=== PATIENT | female | born 1995 | race Caucasian/White ===

== ENCOUNTER 2018-01-11 23:45 | Emergency (ER) | payer OTHER ==
[~2018-01-11] VITALS: Ht 160 cm; Wt 54.4 kg
[2018-01-11 23:51] VITALS: BP 111/62
--- NOTE | 2018-01-11 23:55 | NUR ---
PT TAKEN TO BED 10
--- NOTE | 2018-01-12 | NUR ---
PATIENT PRESENTS TO ED WITH VAGINAL BLEEDING. SKIN IS PINK/WARM/DRY; AAOX4 WITH EVEN AND STEADY GAIT; PATIENT STATES PAIN OF 10/10 AT THIS TIME; VSS; PATIENT POSITIONED FOR COMFORT; HOB ELEVATED; BEDRAILS UP X2; BED DOWN. ER MD MADE AWARE OF PT STATUS.
--- NOTE | 2018-01-12 | NUR ---
PT GIVEN URINE CUP, PT STATES SHE TRIED TO URINATE BUT COULD NOT AT THE MOMENT, BUT WILL TRY AGAIN.
[2018-01-12 00:22] LABS: HEMATOCRIT 37.7 % (36-48); HEMOGLOBIN 12.7 g/dL (12.0-16.0); MEAN CORPUSCULAR HEMOGLOBIN 31 pg (27-31); MEAN CORPUSCULAR HGB CONC 34 g/dL (33-37); MEAN CORPUSCULAR VOLUME 91 fL (80-94); PLATELET COUNT (AUTO) 288 K/uL (140-450); RED BLOOD CELL COUNT(AUTO) 4.15 MIL/uL (4.20-5.40); RED CELL DISTRIBUTION WIDTH 12.2 % (11.6-13.7)
[2018-01-12 00:33] LABS: ANION GAP 14.9 (8-16); CREATININE 0.8 mg/dL (0.6-1.3); POTASSIUM 3.9 mmol/L (3.5-5.1)
[2018-01-12 00:34] LABS: WHITE BLOOD COUNT (AUTO) 29.3 K/uL (4.8-10.8)
[2018-01-12 00:35] LABS: LYMPHOCYTES % (MANUAL) 2 % (20-46); MONOCYTES % (MANUAL) 2 % (5-12)
[2018-01-12] MEDS ORDERED: MORPHINE SULFATE 2 MG/ML SYR IVP ONE (00:45)
[2018-01-12] MEDS ORDERED: ONDANSETRON 4 MG/2 ML VIAL IVP ONE (00:45)
--- NOTE | 2018-01-12 01:11 | NUR ---
US TECH AT BEDSIDE.
[2018-01-12 01:15] LABS: APPEARANCE,URINE TURBID (CLEAR); BILIRUBIN,URINE 1+ (NEGATIVE); BLOOD, URINE 3+ (NEGATIVE); COLOR,URINE RED (YELLOW); LEUKOCYTE ESTERASE ,URINE NEGATIVE (NEGATIVE); NITRITE, URINE NEGATIVE (NEGATIVE); PH,URINE 5.5 (5.0-9.0); UGLUCOSE NEGATIVE (NEGATIVE)
[2018-01-12 01:29] LABS: RBC,URINE TOO NUMEROUS TO COUN /HPF (0-5)
--- NOTE | 2018-01-12 03:00 | NUR ---
PT RESTING. NO SIGNS OF DISTRESS AT THIS TIME. WILL CONTINUE TO MONITOR.
--- NOTE | 2018-01-12 03:20 | NUR ---
IV removed, catheter intact and site benign. Applied folded 4x4 gauze and tape to stop bleeding.
[2018-01-12 03:40] VITALS: BP 90/59
--- NOTE | 2018-01-12 03:40 | NUR ---
Patient discharged with v/s stable. Written and verbal after care instructions given and explained. Patient alert, oriented and verbalized understanding of instructions. Ambulatory with steady gait. All questions addressed prior to discharge. ID band removed. Patient advised to follow up with PMD. Rx of TRAMADOL HYDROCHLORIDE 50MG TAB 1 TAB EVERY 6 HOURS, ZOFRAN ODT 4MG ORALLY DISINTEGRATING TAB 1 TO 2 TABS EVERY 6 HOURS NEEDED given. Patient educated on indication of medication including possible reaction and side effects. Opportunity to ask questions provided and answered.
== END 2018-01-12 03:40 | disposition home or self-care (01) ==
LOC: MED 23:45
DX: O20.0 Threatened abortion (principal); Z3A.01 Less than 8 weeks gestation of pregnancy
CPT/HCPCS: 36415; 76801; 80048; 81001; 81025; 84702; 85025; 86900; 86901; 87040; 87086; 96374; 96375; 99285; J2270; J2405; Q0092